=== PATIENT | male | born 2000 | race Caucasian/White ===

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

== ENCOUNTER 2020-05-18 12:51 | Emergency (ER) | payer OTHER ==
[2020-05-18 13:16] VITALS: BP 159/94; PULSE 81; RESP 18; TEMP 98
[2020-05-18] MEDS ORDERED: LIDOCAINE/EPINEPHR/TETRACAINE 5 ML BOTTLE TOPICAL ONE (13:27)
[2020-05-18] MEDS ORDERED: GELATIN SPONGE,ABSORB (SMALL) 1 EACH SPONGE TOPICAL STA (13:27)
--- NOTE | 2020-05-18 13:32 | ED ---
Wound/Laceration HPI - General Chief Complaint: Wound/Laceration Stated Complaint: Finger Lac Time Seen by Provider: 05/18/20 13:24 Source: family, RN notes reviewed Mode of arrival: ambulatory Limitations: no limitations - History of Present Illness Initial Comments: 20-year-old male presents emergency Department with chief complaint laceration to his right hand third digit. Patient states that a broom broke in which there was a metal. Patient states that it causes a laceration to his third digit there is a skin avulsion his tetanus is up-to-date last 5 years. No paresthesias no decreased range of motion patient states that there is moderate amount of bleeding. - Related Data Home Medications Medication Instructions Recorded Confirmed No Known Home Medications 05/18/20 05/18/20 Allergies Allergy/AdvReac Type Severity Reaction Status Date / Time Penicillins Allergy Anaphylaxis Verified 05/18/20 13:44 Review of Systems ROS Statement: Those systems with pertinent positive or pertinent negative responses have been documented in the HPI. ROS Other: All systems not noted in ROS Statement are negative. Past Medical History Past Medical History: No Reported History History of Any Multi-Drug Resistant Organisms: None Reported Past Surgical History: No Surgical Hx Reported Past Psychological History: No Psychological Hx Reported Smoking Status: Current some day smoker Past Alcohol Use History: None Reported Past Drug Use History: None Reported General Exam Limitations: no limitations General appearance: alert, in no apparent distress Head exam: Present: atraumatic, normocephalic, normal inspection Respiratory exam: Present: normal lung sounds bilaterally. Absent: respiratory distress, wheezes, rales, rhonchi, stridor Cardiovascular Exam: Present: regular rate, normal rhythm, normal heart sounds. Absent: systolic murmur, diastolic murmur, rubs, gallop, clicks Extremities exam: Present: other (right hand third digit on a ppalmar aspect there is a 1 cm x 5 mm skin avulsion mild active bleeding full range motion full-strength of the digit) Course Vital Signs 05/18/20 13:15 Temperature 98.0 F Pulse Rate 81 Respiratory 18 Rate Blood Pressure 159/94 O2 Sat by Pulse 98 Oximetry Medical Decision Making - Medical Decision Making patient had let applied to laceration, skin avulsion which decreased bleeding, Gelfoam was applied finger was wrapped return parameters were discussed. Disposition Clinical Impression: Laceration of finger of right hand Disposition: HOME SELF-CARE Condition: Stable Instructions (If sedation given, give patient instructions): Skin Avulsion (ED) Additional Instructions: Please return to the Emergency Department if symptoms worsen or any other concerns. Is patient prescribed a controlled substance at d/c from ED?: No Referrals: None,Stated [Primary Care Provider] - 1-2 days Time of Disposition: 14:26
== END 2020-05-18 14:43 | disposition home or self-care (01) ==
LOC: EC 12:51
DX: S61.212A Laceration without foreign body of right middle finger without damage to nail, initial encounter (principal); F17.200 Nicotine dependence, unspecified, uncomplicated; Z88.0 Allergy status to penicillin; W26.8XXA Contact with other sharp object(s), not elsewhere classified, initial encounter
CPT/HCPCS: 99282

== ENCOUNTER 2024-12-16 21:03 | Emergency (ER) | payer OTHER ==
[2024-12-16 21:34] VITALS: RESP 18
--- NOTE | 2024-12-16 22:17 | ED ---
General Adult HPI - General Chief complaint: Skin/Abscess/Foreign Body Stated complaint: Sunburn on Back Time Seen by Provider: 12/16/24 21:43 Source: patient Mode of arrival: ambulatory - History of Present Illness Initial comments: This is a pleasant 24-year-old gentleman presenting today for sunburn. Patient states that he is allergic to the sun and on Monday he was out on his boat all day and did not use sunscreen. He sustained a sunburn to his back. He states it was itching and painful on Monday evening, he did have some nausea and noticed that his urine had darkened however those symptoms have resolved. He has not been using any pain medications or topical medications at home for his pain or discomfort. He states he is presenting today to see if there is a nything topical he can safely apply to his sunburn. He is concerned that the blisters across a sunburn have become infected, states that he has had some yellowish discharge from them. He currently denies shortness of breath, fevers, chills, nausea, vomiting, chest pain, abdominal pain, dark urine. Denies any other new exposures including to new plants such as poison ted, new medications or detergents. - Related Data Previous Rx's Medication Instructions Recorded Calamine/Zinc Oxide Lotion 1 applic TOPICAL QID PRN 7 Days 12/16/24 [Calamine Lotion] #177 ml Cephalexin [Keflex] 500 mg PO Q6HR 5 Days #20 cap 12/16/24 Jmrhrgsv-Bgqlgrlnwd-Skqq Oint 1 applic TOPICAL BID 7 Days #14 12/16/24 [Triple Antibiotic Ointment] packet Allergies Allergy/AdvReac Type Severity Reaction Status Date / Time Penicillins Allergy Anaphylaxis Verified 12/16/24 21:34 Review of Systems ROS Statement: Those systems with pertinent positive or pertinent negative responses have been documented in the HPI. ROS Other: All systems not noted in ROS Statement are negative. Past Medical History Past Medical History: No Reported History History of Any Multi-Drug Resistant Organisms: None Reported Past Surgical History: No Surgical Hx Reported Past Psychological History: No Psychological Hx Reported Smoking Status: Current some day smoker Past Alcohol Use History: None Reported Past Drug Use History: None Reported General Exam - General Exam Comments Initial Comments: PE: CONSTITUTIONAL: No apparent distress, well appearing SKIN: Warm, dry, no jaundice, hives or petechiae. Diffuse superficial erythematous sunburn across back, few scattered clear vesicular/ blistering lesions across upper back, 2-3 approx 1 cm in diamter which have spontaneously ruptured and draining clear fluid, few scattered additional tiny blisters across upper back. Superfiical burn extends around sides of upper abdomen and shoulders. EYES: Pupils are equally round, extraocular movements intact without nystagmus, clear conjunctiva, non-icteric sclera HENT: Normocephalic, atraumatic, moist mucus membranes, oropharynx clear without exudates NECK: , Full range of motion, normal appearance PULMONARY: Clear to auscultation without wheezes, rhonchi, or rales, normal excursion, no accessory muscle use and no stridor CARDIOVASCULAR: Regular rate, rhythm, normal S1 and S2. No appreciated murmurs, rubs or gallops. Extremities are well-perfused GASTROINTESTINAL: Soft, active bowel sounds throughout, non-tender, non- distended, no palpable masses, no rebound or guarding. No hepatosplenomegaly MUSCULOSKELETAL: Extremities have no gross deformity, no edema, redness, or swelling. NEUROLOGIC:_a/o x 3, GCS 15, normal mentation and speech. Moves all extremities x 4 without motor or sensory deficit PSYCHIATRIC:_normal mood and affect, thought process is clear and linear Course Vital Signs 12/16/24 21:31 Temperature 98.9 F Pulse Rate 71 Respiratory 18 Rate Blood Pressure 127/74 O2 Sat by Pulse 98 Oximetry Medical Decision Making - Medical Decision Making Was pt. sent in by a medical professional or institution (, PA, [employer], urgent care, hospital, or senior living...) When possible be specific @ -[No] Did you speak to anyone other than the patient for history (EMS, parent, family, police, friend...)? What history was obtained from this source @ -[No] Did you review nursing and triage notes (agree or disagree)? Why? @ -[I reviewed and agree with nursing and triage notes] Were old charts reviewed (outside hosp., previous admission, EMS record, old EKG, old radiological studies, urgent care reports/EKG's, senior living records)? Report findings @ -[Medical records reviewed] Differential Diagnosis (chest pain, altered mental status, abdominal pain women, abdominal pain men, vaginal bleeding, weakness, fever, dyspnea, syncope, headache, dizziness, GI bleed, back pain, seizure, CVA, palpatations, mental health, musculoskeletal)? @Differential diagnose remains broad over have considerations include sunburn, superficial sunburn, second-degree sunburn, cellulitis, contact dermatitis, this is not nonocclusive list EKG interpreted by me (3pts min.). @ -[As above] X-rays interpreted by me (1pt min.). @ -[None done] CT interpreted by me (1pt min.). @ -[None done] U/S interpreted by me (1pt. min.). @ -[None done] What testing was considered but not performed or refused? (CT, X-rays, U/S, labs)? Why? @ -[None] What meds were considered but not given or refused? Why? @ -[None] Did you discuss the management of the patient with other professionals (professionals i.e. , PA, [employer], lab, RT, psych nurse, long term care social worker, foundation assistant, teacher, chief talent officer, case folder)? Give summary @ -[No] Was smoking cessation discussed for >3mins.? @ -[No] Was critical care preformed (if so, how long)? @ -[No] Were there social determinants of health that impacted care today? How? (Homelessness, low income, unemployed, alcoholism, drug addiction, transportation, low edu. Level, literacy, decrease access to med. care, intermediate, rehab)? @ -[No] Was there de-escalation of care discussed even if they declined (Discuss DNR or withdrawal of care, Hospice)? @ -[No] What co-morbidities impacted this encounter? (DM, HTN, Smoking, COPD, CAD, Cancer, CVA, ARF, Chemo, Hep., AIDS, mental health diagnosis, sleep apnea, morbid obesity)? @ -[None] Was patient admitted / discharged? Hospital course, mention meds given and route, prescriptions, significant lab abnormalities, going to OR and other pert inent info. @ -[hospital course] patient is a pleasant 24-year-old gentleman previous healthy presenting today for sunburn to his back. Vital signs are stable on arrival. My assessment he is well-appearing in no acute distress. He does have diffuse first-degree/superficial sunburn across his back with few vesicular/blistering lesions, across upper back that do not extend >5% TBSA. Patient is otherwise well-appearing, appears well-hydrated. Lungs are clear to auscultation bilaterally. He denies throat swelling, nausea, vomiting. Denies fevers. Discussed with patient plan for application of bacitracin ointment, he can use symptomatic care such as aloe vera gel, calamine lotion nonclonal male bowels. He will be given Toradol and Benadryl prior to discharge. Patient does note concern for superimposed infection blistered lesions, is difficult to tell surrounding erythema secondary to sunburn or cellulitis so he will be discharged home with Keflex as well. Discussed with patient signs and symptoms warranting return to the ER such as fevers, failure of symptoms to improve over the next 2 days, worsening of symptoms, darkening of his urine, shortness of breath, nausea vomiting or fevers. Patient verbalized understanding was discharged in good condition. In my medical judgment there is currently no evidence of an immediate life- threatening or surgical condition. Discharge is therefore indicated at this time. [Discharge treatment instructions, follow up instructions, and appropriate emergency department return precautions were discussed with the patient and/or medical decision maker. Patient and/or medical decision maker expressed understanding of and agreed with the treatment plan, follow up instructions, and emergency department return precaution. All patient's and/or medical decision maker's questions were answered.] [The patient was advised that a small risk still exists that a serious condition could develop and was therefore instructed to return to the ED for any changes in symptoms, persistent symptoms, inability to obtain proper follow-up or for any further concerns. Patient received verbal and written instructions for this condition.] Undiagnosed new problem with uncertain prognosis? @ -[No] Drug Therapy requiring intensive monitoring for toxicity (Heparin, Nitro, Insulin, Cardizem)? @ -[No] Were any procedures done? @ -[No] Diagnosis/symptom? @Sunburn, superficial, sunburn second-degree Acute, or Chronic, or Acute on Chronic? @Acute Uncomplicated (without systemic symptoms) or Complicated (systemic symptoms)? @Uncomplicated Side effects of treatment? @ -[No] Exacerbation, Progression, or Severe Exacerbation? @ -[No] Poses a threat to life or bodily function? How? (Chest pain, [place], [place], pneumonia, PE, COPD, DKA, ARF, appy, cholecystitis, CVA, Diverticulitis, Homicidal, Suicidal, threat to staff... and all critical care pts) @ -[No] Disposition Clinical Impression: Sunburn, second degree Disposition: HOME SELF-CARE Condition: Good Instructions (If sedation given, give patient instructions): Sunburn (ED), Seco nd-Degree Burn (ED) Additional Instructions: Every disease is a spectrum and a small chance still exists that a serious condition could develop, for this reason, please monitor yourself closely for new, changing or worsening symptoms, symptoms that do not begin to improve over the next 48 hours, redness, swelling or thick discharge from your blisters, fevers, chills, shortness of breath, darkening of your urine lightheadedness, dizziness, nausea vomiting , inability to tolerate/keep down fluids or your medications, inability to follow up with outpatient providers as instructed and should you experience these symptoms or should you have any further concerns for your wellbeing please return to the ED or call 911 immediately. Please continue to use sunscreen during outdoor activities, reapply frequently. Your pain can be treated with ibuprofen and acetaminophen. You can take up to 400-600 mg of ibuprofen (Advil, Motrin) 3 times daily (every 8 hours) but can also use lower doses if this relieves your pain. Some people prefer naproxen (Aleve, Naprosyn) which can be taken in doses of 500 mg up to twice a day. Do not take both of these medicines together, and do not combine either with ketorolac (Toradol), meloxicam (Mobic), or indomethacin (Tivorbex). Some people can develop stomach discomfort with higher doses of either ibuprofen or naproxen, if this develops decrease your dose or stop taking it. If you need to take this dose daily for more than a week, please schedule an appointment for re-evaluation with your PCP. Please take these medications with food. You can take up to 1000 mg of acetaminophen (Tylenol) every 6 hours. Be careful as this is included in some medicines like Nyquil, [place], Percocet, Vicodin, STANBACK, Goody's Powders, and Excedrin. You may use topical calamine lotion, aloe vera gel, and room temperature colloidal oatmeal baths to help with discomfort and itching. Please keep your sunburn covered, especially the blistered areas at all times until completely healed. Do not pop/ or deroof blisters. PLEASE call your primary care physician as soon as possible to arrange / discuss plan for followup appointment. Appointment in the next 1-3 days is strongly encouraged if possible. PLEASE let us know here before you leave if there is anything further we can do to be of any assistance. Take care and feel Better! Prescriptions: Calamine/Zinc Oxide Lotion [Calamine Lotion] 1 applic TOPICAL QID PRN 7 Days #177 ml PRN Reason: Skin Irritation Cephalexin [Keflex] 500 mg PO Q6HR 5 Days #20 cap Atmuippe-Nrftndhfbj-Ulad Oint [Triple Antibiotic Ointment] 1 applic TOPICAL BID 7 Days #14 packet Is patient prescribed a controlled substance at d/c from ED?: No Referrals: None,Stated [Primary Care Provider] - 1-2 days
[2024-12-16] MEDS: KETOROLAC 15 MG/ML 1 ML VIAL IM STA (22:25)
[2024-12-16] MEDS: CEPHALEXIN 500 MG CAP PO STA (22:25)
[2024-12-16] MEDS: diphenhydrAMINE 25 MG CAP PO STA (22:25)
[2024-12-16] MEDS: CEPHALEXIN 500MG STARTER PACK 4 CAP BTL PO STA (22:25)
[2024-12-16] MEDS: NEOMYCIN-BACITRACIN-POLY OINT 1 APPLIC/EACH PACKET TOPICAL STA (22:29)
[2024-12-16 23:06] VITALS: BP 126/69; PULSE 73; TEMP 98
== END 2024-12-16 22:53 | disposition home or self-care (01) ==
LOC: EC 21:03
DX: L55.1 Sunburn of second degree (principal); T31.0 Burns involving less than 10% of body surface; F17.200 Nicotine dependence, unspecified, uncomplicated; Z88.0 Allergy status to penicillin
CPT/HCPCS: 99283; 96372; 16020; J1885